=== PATIENT | female | born 1955 | race Hispanic/Latino ===

== ENCOUNTER 2018-06-17 18:28 | Inpatient (IN) | payer OTHER ==
[~2018-06-17] VITALS: Ht 170.2 cm; Wt 96.2 kg
--- NOTE | 2018-06-17 20:54 | Diagnostic Imaging Report ---
EXAMINATION: CXR 1 [facility] INDICATION: Generalized weakness. \S\[id number] \S\1950 COMPARISON: None FINDINGS: AP view TUBES and LINES: None. LUNGS: Lungs are well inflated. Mild central vascular congestion. There is no evidence of pneumonia or pulmonary edema. PLEURA: No pleural effusion or pneumothorax. HEART AND MEDIASTINUM: The cardiac silhouette is borderline enlarged. BONES AND SOFT TISSUES: No acute osseous lesion. Soft tissues are unremarkable. UPPER ABDOMEN: No free air under the diaphragm. IMPRESSION: Borderline enlarged cardiac silhouette. Mild central vascular congestion. No definite focal consolidation. Signed by: Dr. Edil Lemus MD on 06/17/2018 8:50 PM
[2018-06-17] MEDS ORDERED: HYDRALAZINE HCL 20 MG/ML VIAL IV PRN (22:45)
[2018-06-17] MEDS ORDERED: HYDRALAZINE HCL 25 MG TAB PO ONE (22:45)
[2018-06-17] MEDS ORDERED: HYDROCHLOROTHIA25 MG (23:14)
[2018-06-17] MEDS ORDERED: LISINOPRIL10 MG PO (23:14)
[2018-06-17] MEDS ORDERED: SIMVASTATIN40 MG PO (23:14)
[2018-06-17] MEDS ORDERED: GLIPIZIDE5 MG PO (23:14)
[2018-06-17] MEDS ORDERED: METFORMIN HCL500 MG PO (23:14)
[2018-06-18] VITALS (30 sets, daily range): BP systolic 106–191; BP diastolic 26–93
[2018-06-18] MEDS: SODIUM CHLORIDE FLUSH 10 ML SYR INJ PRN (01:14)
[2018-06-18 05:36] LABS: CREATINE KINASE MB 0.6 ng/mL (0-5.0)
[2018-06-18 07:08] LABS: BASOPHILS % 0.5 % (0.0-1.0); EOSINOPHILS # (AUTO) 0.1 (0.0-0.4); EOSINOPHILS % 1.6 % (0.0-6.0); HEMATOCRIT 37.4 % (34.2-44.1); HEMOGLOBIN 12.5 g/dL (12.0-16.0); LYMPHOCYTES # (AUTO) 2.9 (1.0-3.2); LYMPHOCYTES % 47.4 % (18.0-39.1); MEAN CORPUSCULAR HGB CONC 33.4 g/dL (31-35); MEAN CORPUSCULAR VOLUME 89.7 fL (81-99); MONOCYTES # (AUTO) 0.5 (0.2-0.8); NEUTROPHILS # (AUTO) 2.6 (2.1-6.9); NEUTROPHILS % 42.3 % (38.7-80.0); PLATELET COUNT 191 x10e3/uL (140-360); RED BLOOD COUNT 4.17 x10e6/uL (3.6-5.1); RED CELL DISTRIBUTION WIDTH 12.9 % (11.7-14.4)
[2018-06-18 07:13] LABS: INR 1.05; PROTHROMBIN TIME 12.9 seconds (11.9-14.5)
[2018-06-18 07:17] LABS: ANION GAP 16.4 mmol/L (8-16); BLOOD UREA NITROGEN 12 mg/dL (7-26); BUN/CREATININE RATIO 17 (6-25); CARBON DIOXIDE 24 mmol/L (22-29); CHLORIDE 105 mmol/L (98-107); CREATININE, SERUM 0.71 mg/dL (0.57-1.11); EST GLOMERULAR FILTRATION RATE > 60 ML/MIN (60-); GLUCOSE 106 mg/dL (74-118); POTASSIUM 3.4 mmol/L (3.5-5.1); SODIUM 142 mmol/L (136-145)
--- NOTE | 2018-06-18 08:56 | History and Physical ---
REFERRING PHYSICIAN: Dr. Rao CHIEF COMPLAINT: Lightheadedness, dizziness, and second-degree heart block. HISTORY OF PRESENT ILLNESS: The patient is a 63-year-old woman. She has a history of a stress test and a cardiac evaluation 10 years ago that was normal. She has some mild diabetes and hypertension. Apparently, she felt lightheaded, dizzy. She denied any focal neurological complaints. She denied any chest pain or headache. She went to the emergency department, was found to have a second-degree heart block. She was then transferred to the intensive care unit. She has not been taking any beta blockers or calcium channel blockers. PAST MEDICAL HISTORY: 1. Hypertension. 2. Diabetes. 3. High cholesterol. PAST SURGICAL HISTORY: Hysterectomy. SOCIAL HISTORY: The patient is not a smoker or a drinker. ALLERGIES: THERE ARE NO KNOWN DRUG ALLERGIES. REVIEW OF SYSTEMS: There is no fever. She has no headache. No neck pain. No chest pain. No difficulty breathing, no cough. She has no abdominal pain. No nausea or vomiting. No focal neurological complaints. PHYSICAL EXAMINATION: VITAL SIGNS: The patient is afebrile. The heart rate is 30 to 35. Blood pressure is stable. HEENT: Showed no facial swelling or erythema. The nasal mucosa is normal. The oropharynx is normal. LYMPHATIC: Showed no submandibular, cervical, or supraclavicular adenopathy. CARDIAC: Reveals bradycardia with a normal S1 and S2. There are no murmurs or rubs. CHEST: Auscultation of lungs reveals clear breath sounds bilaterally. There is no wheezing. ABDOMEN: Soft and nontender. There is no rebound or guarding. EXTREMITIES: Examination of the extremities shows no leg edema or calf tenderness. There is no cyanosis or clubbing. SKIN: Shows no rashes. NEUROLOGIC: Shows no focal abnormalities. IMPRESSION: 1. Second-degree heart block with bradycardia. 2. Diabetes. 3. Hypertension. 4. Hypercholesterolemia. 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 She also needs evaluation for coronary artery disease. Continue current management of diabetes and hypertension. Await further recommendations from cardiology. Job#: [id number]
[2018-06-18] MEDS: LISINOPRIL 20 MG TAB PO SCH ×2 (09:00→18:30)
[2018-06-18] MEDS: GLIPIZIDE 5 MG TAB PO SCH ×2 (09:00→18:30)
[2018-06-18] MEDS ORDERED: POTASSIUM CHLORIDE 20 MEQ TAB CR PO ONE ×2 (09:59→10:30)
[2018-06-18 10:30] LABS: FREE THYROXINE INDEX 2.7898 (1.4-3.8); THYROID STIMULATING HORMONE 2.98 uIU/mL (0.350-4.940)
--- NOTE | 2018-06-18 11:07 | Consultation ---
DATE OF CONSULTATION: ATTENDING PHYSICIAN: Flynn Silva MD CARDIOLOGY CONSULTATION CLINICAL HISTORY: This is a 63-year-old woman admitted via [facility] because of Mobitz-II AV block with heart rate of approximately 30 beats per minute without any evidence of hypotension or altered mental status. According to the patient, she has noticed exertional dyspnea and some dizziness but no syncope or near syncope. She has had vague chest discomfort although she says in the past she has been physically active and able to walk up a steep ramp at work without any exertion-related chest discomfort. A brother apparently had myocardial infarction at age 60. There is a family history of hypertension and diabetes, particularly in her mother. For the past 2 weeks, she has noticed the above-mentioned mild dizziness and shortness of breath. Very minimal chest discomfort otherwise. She made an appointment to see Dr. Tosin Mckinney, and was found to have bradycardia and was referred to the emergency room, but she ended up at the [facility] and was later transferred to [facility] [place]. Blood pressure was actually elevated in the range of 190 systolic. She was treated with hydralazine with improvement. PAST MEDICAL HISTORY: Remarkable for hysterectomy and vaginal delivery. There is history of diabetes and hypertension. She is taking lisinopril and hydrochlorothiazide. PERSONAL / SOCIAL HISTORY: Denies smoking, drinking. 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 FAMILY HISTORY: Father is unknown. Mother had diabetes and hypertension, from hepatitis. Brother had myocardial infarction at age 60. REVIEW OF SYSTEMS: Noncontributory. PHYSICAL EXAMINATION GENERAL: She is obese, alert, coherent. VITAL SIGNS: Stable otherwise, except for heart rate of 30. CARDIAC: Jugular veins were not distended. S1, S2 were distant, slow and regular. LUNGS: Clear. ABDOMEN: Soft. Bowel sounds are present. EXTREMITIES: No cyanosis, clubbing or edema. LABORATORY STUDIES: Electrocardiogram shows sinus rhythm with Mobitz-II AV block, sometimes only 1 out of 3 T waves are conducted. There is a right bundle-branch block. Chest x-ray was said to be negative. Laboratory studies are not available. IMPRESSION 1. Mobitz-II atrioventricular block with severe bradycardia, heart rate 30, sometimes conducting 1 beat out of 3 and with right bundle-branch block. The patient likely to have an infra-Hisian block and may require a permanent pacemaker. 2. Atypical chest discomfort. Consider coronary artery disease with family history of the same. 3. Family history of coronary artery disease. Brother had myocardial fraction at age 60. 4. Obesity. 5. Diabetes. 6. Hypertension. RECOMMENDATION: Temporary pacemaker, consider permanent pacemaker. Risks, benefits and alternatives of both were explained to the patient and understood. This patient does have a heart murmur and will require echocardiogram prior to permanent pacemaker. Job#: [id number] cc:Chelsi GARCIA M.D.
[2018-06-18 13:57] LABS: CREATINE KINASE MB 0.6 ng/mL (0-5.0)
[2018-06-18] MEDS ORDERED: FUROSEMIDE 20 MG TAB PO ONE (15:00)
[2018-06-18] MEDS ORDERED: LIDOCAINE HCL 2% LOCAL 20 ML VIAL ONE (15:07)
[2018-06-18] MEDS ORDERED: SODIUM CHLORIDE 0.9% 500ML 500 ML ONE (15:07)
[2018-06-18] MEDS ORDERED: FENTANYL CITRATE/PF 100MCG/2 ML INJ ONE (15:22)
[2018-06-18] MEDS ORDERED: MIDAZOLAM HCL 2 MG/2 ML VIAL ONE (15:22)
--- NOTE | 2018-06-18 16:39 | Operative Report ---
DATE OF PROCEDURE: June 18, 2018 ATTENDING PHYSICIAN: Dr. Flynn Silva. PROCEDURE: Temporary pacemaker. CLINICAL HISTORY AND INDICATIONS: A 63-year-old white woman who presented with Mobitz 2 A-V block, severe bradycardia, heart rate dropping down to the 20s and 30s and never increased above 40, who has right bundle branch block, a Mobitz 2 A-V block, and has no specific medication that could have caused this. Permanent pacemaker at this time is not available. At this time we decided to proceed with temporary pacemaker. PROCEDURE: The patient was brought to the cardiac catheterization laboratory in a fasting and sedated state. Using aseptic technique, Betadine skin preparation, lidocaine local anesthesia, the right femoral vein was entered using a modified Seldinger technique. A 4-American sheath was inserted inside this vessel. A temporary pacing wire was passed through the right ventricular apex. The threshold mA was less than 0.5. The lead was then sutured into place as well as the sheath and was taped down and the patient was taken back to the ICU. CONCLUSION: Successful implantation of temporary pacemaker, rate set at 70, mA set at 5. Job#: [id number] TA cc:FLYNN SILVA MD
--- NOTE | 2018-06-18 17:23 | Cardiology Report ---
DATE OF STUDY: June 18, 2018 ECHOCARDIOGRAM M-MODE: Normal chamber sizes. Left ventricular hypertrophy. Normal contractility. Normal mitral and aortic valves. No pericardial effusion. SECTOR SCAN: Normal chamber sizes. Left ventricular hypertrophy. Normal contractility. Ejection fraction is approximately 65%. Mitral, aortic and tricuspid valves are grossly normal. There is no pericardial effusion. CARDIAC DOPPLER STUDY WITH COLOR: Trace mitral and tricuspid regurgitation. Trace pulmonic regurgitation. CONCLUSIONS 1. Left ventricular hypertrophy with ejection fraction of approximately 65%. 2. Trace mitral, tricuspid and pulmonic regurgitation. Job#: [id number] cc:SHEEBA LUKE M.D.
[2018-06-18] MEDS ORDERED: ACETAMINOPHEN 325 MG TAB ONE (18:33)
[2018-06-18] MEDS: SIMVASTATIN 40 MG TAB PO SCH (20:43)
[2018-06-19] VITALS (32 sets, daily range): BP systolic 124–152; BP diastolic 66–84
[2018-06-19 00:31] LABS: CREATINE KINASE MB < 1.00 ng/mL (0-4.3)
[2018-06-19 01:09] LABS: CREATINE KINASE 76 IU/L (29-168)
--- NOTE | 2018-06-19 06:12 | Diagnostic Imaging Report ---
CHEST SINGLE (PORTABLE), 06/19/2018 12:00 PM Technique: CHEST SINGLE (PORTABLE) Comparison: 06/17/2018. Clinical history: Cardiac catheterization Findings: See Impression Impression: 1. Enlarged cardiomediastinal silhouette, accentuated by portable technique. 2. No overt edema or consolidation. 3. No effusion or pneumothorax. Signed by: Dr Sabrina Cyr MD on 06/19/2018 6:08 AM
[2018-06-19] MEDS ORDERED: CEFAZOLIN SOD 1 GM VIAL ONE ×2 (07:27→08:57)
[2018-06-19 07:59] LABS: ANION GAP 15.1 mmol/L (8-16); BLOOD UREA NITROGEN 14 mg/dL (7-26); BUN/CREATININE RATIO 17 (6-25); CALCIUM 9.9 mg/dL (8.4-10.2); CARBON DIOXIDE 22 mmol/L (22-29); CHLORIDE 106 mmol/L (98-107); CREATININE, SERUM 0.81 mg/dL (0.57-1.11); EST GLOMERULAR FILTRATION RATE > 60 ML/MIN (60-); GLUCOSE 151 mg/dL (74-118); POTASSIUM 4.1 mmol/L (3.5-5.1); SODIUM 139 mmol/L (136-145)
[2018-06-19] MEDS ORDERED: CEFAZOLIN SOD 1 GM VIAL IV ONE (08:00)
[2018-06-19] MEDS: GLIPIZIDE 5 MG TAB PO SCH ×2 (08:30→16:39)
[2018-06-19] MEDS ORDERED: MIDAZOLAM HCL 2 MG/2 ML VIAL ONE (08:37)
[2018-06-19] MEDS ORDERED: FENTANYL CITRATE/PF 100MCG/2 ML INJ ONE (08:37)
[2018-06-19] MEDS ORDERED: BACITRACIN 50,000 UNIT VIAL ONE (08:38)
[2018-06-19] MEDS ORDERED: SODIUM CHLORIDE 0.9% 500ML 1,000 ML ONE (08:38)
[2018-06-19] MEDS ORDERED: LIDOCAINE HCL 2% LOCAL 20 ML VIAL ONE (08:38)
[2018-06-19] MEDS ORDERED: SODIUM CHLORIDE 0.9% 1000ML 1,000 ML ONE (08:39)
[2018-06-19] MEDS ORDERED: SODIUM CHLORIDE 0.9% 50ML 50 ML ONE (08:57)
[2018-06-19] MEDS: LISINOPRIL 20 MG TAB PO SCH ×2 (09:00→16:39)
--- NOTE | 2018-06-19 12:06 | Diagnostic Imaging Report ---
EXAMINATION: CHEST SINGLE (PORTABLE) INDICATION: Bradycardia. Pacemaker placement. COMPARISON: 06/19/2018 FINDINGS: TUBES and LINES: Left chest cardiac device has been placed. There is a metallic lead over the right chest which could be external to the patient. LUNGS: Lungs are well inflated. Lungs are clear. There is no evidence of pneumonia or pulmonary edema. PLEURA: No pleural effusion or pneumothorax. HEART AND MEDIASTINUM: Prominent cardiac silhouette. BONES AND SOFT TISSUES: No acute osseous lesion. Soft tissues are unremarkable. UPPER ABDOMEN: No free air under the diaphragm. IMPRESSION: Left chest dual lead cardiac device has been placed. No pneumothorax is seen. Signed by: Dr. Mike Simmons M.D. on 06/19/2018 12:02 PM
[2018-06-19] MEDS: TRIAMCINOLONE ACET 0.1% CREAM 15 GM TUBE TOP SCH ×2 (13:15→16:40)
--- NOTE | 2018-06-19 13:15 | Operative Report ---
DATE OF PROCEDURE: June 19, 2018 ATTENDING PHYSICIAN: Dr. Flynn Silva. PROCEDURES PERFORMED: Permanent pacemaker removal with temporary pacemaker. CLINICAL HISTORY/INDICATIONS: A 63-year-old white woman who presented with right bundle branch block, Mobitz II AV block, with heart rate dropping down to 20s and 30s, in fact persisted at that range, requiring temporary pacemaker with no fall in blood pressure. She often had only 1 conducted beat out of 3. PROCEDURE: She was brought to the cardiac catheterization laboratory in a fasting and sedated state. Using aseptic technique, Betadine skin preparation, and lidocaine local anesthesia, the venogram in the left subclavian area was carried out. The left subclavian was entered using the modified Seldinger technique. Two wires were placed with tip position in the superior vena cava. Using careful dissection to the level of the muscular fascia, a pacemaker pocket was carefully made. All the bleeding was stopped using the Bovie machine maintenance. The atrioventricular leads were then placed in the right ventricular apex and the right atrial appendage respectively. Thresholds were tested to be satisfactory. There was no evidence of diaphragmatic pacing at 10 volts. Each lead was then anchored into position using 2 independent nonabsorbable anchoring sutures and the existing anchoring sleeve. The leads then were connected to the pulse generator. The pocket was irrigated with antibiotics and dried. The pulse generator was placed inside the pocket. The pocket was closed using 3 layers of absorbable sutures and Steri-Strips. The pacemaker was once again tested to be satisfactory, and the pocket was covered up and the patient was taken to the intensive care unit. The patient did receive Versed for sedation, was otherwise awake. The hardware implanted in this patient is a Med[employer]basis, model number W1DR01, serial number [id number]. Mathematics Lecturer is [employer], implanted June 19, 2018, in the left pectoral region. The right atrial lead is model number 5076-45, serial number [id number], made by [employer], implanted in the right atrial appendage. The right ventricular lead is a model number 5076-52, length 52, serial number [id number], made by [employer], implanted in the right ventricular apex June 19, 2018. The threshold values as follows: The right atrium bipolar, pulse width 0.5, voltage 0.8, impedance 487, P wave 2.6. Right ventricle bipolar, pulse width 0.5, voltage 0.8, impedance 892, R wave 10.1. The setting parameters are: Atrial amplitude 3.5, pulse width 0.4, sensitivity 0.3, pacing and sensing both bipolar. For the right ventricle, amplitude 3.5, pulse width 0.4, sensitivity 0.9, pacing and sensing threshold both bipolar. The settings are DDD. Mode switch is On. Lower rate is 60. Upper rate tracking is 130. AV interval is 180. AV sensing interval is 150. Rate adaptor AV. Interval Off. Job#: [id number] EV
[2018-06-19] MEDS: ACETAMINOPHEN 325 MG TAB PO PRN ×2 (16:48→22:11)
[2018-06-19] MEDS: SODIUM CHLORIDE FLUSH 10 ML SYR INJ PRN (19:35)
[2018-06-19] MEDS: SIMVASTATIN 40 MG TAB PO SCH (21:36)
[2018-06-20] VITALS (9 sets, daily range): BP systolic 121–166; BP diastolic 73–88
[2018-06-20 04:47] LABS: BASOPHILS % 0.3 % (0.0-1.0); EOSINOPHILS # (AUTO) 0.1 (0.0-0.4); EOSINOPHILS % 1.8 % (0.0-6.0); HEMATOCRIT 41.8 % (34.2-44.1); LYMPHOCYTES # (AUTO) 2.4 (1.0-3.2); MEAN CORPUSCULAR HGB CONC 33.5 g/dL (31-35); MEAN CORPUSCULAR VOLUME 89.7 fL (81-99); MONOCYTES # (AUTO) 0.7 (0.2-0.8); MONOCYTES % 9.2 % (4.4-11.3); NEUTROPHILS % 55.6 % (38.7-80.0); PLATELET COUNT 148 x10e3/uL (140-360); RED BLOOD COUNT 4.66 x10e6/uL (3.6-5.1); RED CELL DISTRIBUTION WIDTH 12.9 % (11.7-14.4)
[2018-06-20 05:03] LABS: ANION GAP 14.1 mmol/L (8-16); BLOOD UREA NITROGEN 16 mg/dL (7-26); BUN/CREATININE RATIO 23 (6-25); CALCIUM 9.8 mg/dL (8.4-10.2); CARBON DIOXIDE 23 mmol/L (22-29); CHLORIDE 106 mmol/L (98-107); CREATININE, SERUM 0.71 mg/dL (0.57-1.11); EST GLOMERULAR FILTRATION RATE > 60 ML/MIN (60-); GLUCOSE 107 mg/dL (74-118); POTASSIUM 4.1 mmol/L (3.5-5.1); SODIUM 139 mmol/L (136-145)
[2018-06-20] MEDS: GLIPIZIDE 5 MG TAB PO SCH (07:46)
[2018-06-20] MEDS: ACETAMINOPHEN 325 MG TAB PO PRN (07:47)
[2018-06-20] MEDS: LISINOPRIL 20 MG TAB PO SCH (09:10)
[2018-06-20] MEDS: TRIAMCINOLONE ACET 0.1% CREAM 15 GM TUBE TOP SCH (09:17)
== END 2018-06-20 11:00 | disposition home or self-care (01) | DRG 244 ==
LOC: FSED 18:28 → ERHOLD 22:50 → ICU 06-18 00:11
PROVIDERS: ADMIT Internal Medicine Critical Care Medicine; ATTEND Internal Medicine Critical Care Medicine
PROC: 5A1223Z Performance of Cardiac Pacing, Continuous (ICD-10-PCS; 2018-06-18)
PROC: 02HK3JZ Insertion of Pacemaker Lead into Right Ventricle, Percutaneous Approach (ICD-10-PCS; 2018-06-18)
PROC: 0JH607Z Insertion of Cardiac Resynchronization Pacemaker Pulse Generator into Chest Subcutaneous Tissue and Fascia, Open Approach (ICD-10-PCS; principal; 2018-06-19)
PROC: 02H63JZ Insertion of Pacemaker Lead into Right Atrium, Percutaneous Approach (ICD-10-PCS; 2018-06-19)
PROC: 02HK3JZ Insertion of Pacemaker Lead into Right Ventricle, Percutaneous Approach (ICD-10-PCS; 2018-06-19)
DX: I44.1 Atrioventricular block, second degree (principal); E11.9 Type 2 diabetes mellitus without complications; E03.9 Hypothyroidism, unspecified; I10 Essential (primary) hypertension; E66.9 Obesity, unspecified; Z68.33 Body mass index [BMI] 33.0-33.9, adult; Z79.4 Long term (current) use of insulin; R00.1 Bradycardia, unspecified
CPT/HCPCS: 33208; 33210; 36415; 71045; 80048; 80053; 82550; 82553; 82948; 83880; 84436; 84443; 84479; 84484; 85025; 85610; 85730; 93005; 93306; 99284; C1713; C1766; C1898; J0690; J2001; J2250; J7030; J7040

== ENCOUNTER → 2025-01-22 | Outpatient (REF) | payer MEDICARE ==
[~2025-01-22] MED LIST: GLIPIZIDE5 MG PO; HYDROCHLOROTHIA25 MG; LISINOPRIL10 MG PO; METFORMIN HCL500 MG PO; SIMVASTATIN40 MG PO
== END ==
LOC: CT 15:12
PROVIDERS: ATTEND Family Medicine
DX: S00.83XA Contusion of other part of head, initial encounter (principal); W19.XXXA Unspecified fall, initial encounter
CPT/HCPCS: 70486

== ENCOUNTER → 2025-06-29 | Outpatient (REF) | payer MEDICARE | LOC: MAMMO 08:45 | PROVIDERS: ATTEND Family Medicine | DX: Z12.31 Encounter for screening mammogram for malignant neoplasm of breast (principal) | CPT/HCPCS: 77067 ==